=== PATIENT | female | born 1950 | race Hispanic/Latino ===

== ENCOUNTER 2018-08-09 20:39 | Emergency (ER) | payer SELFPAY ==
[2018-08-09] MEDS ORDERED: GASTROGRAFIN SOLUTION 30ML (Q9963) As Ordered (21:58)
[2018-08-09] MEDS: GASTROGRAFIN SOLUTION 30ML PO ×2 (22:00→22:30)
[2018-08-09] MEDS: MORPHINE 4 MG/ML 1ML VIAL/SYRINGE (J2270) IV (22:03)
[2018-08-09] MEDS: ONDANSETRON 4MG/2ML VIAL (J2405) IV ×2 (22:03→22:45)
[2018-08-09] MEDS: NS 1,000 ML IV (22:03)
[2018-08-09 22:09] LABS: BASO % 0.3 % (0.0-1.0); EOS # 0.1 10^3/uL (0.0-0.50); EOS % 1.5 % (0.0-3.0); HEMATOCRIT 28.9 % (36.0-47.0); HEMOGLOBIN 9.1 g/dl (12.0-15.5); IMMATURE GRANULOCYTE % 0.3 % (0-3.0); LYMPH # 1.5 10^3/uL (1.5-4.5); LYMPH % 20.5 % (24.0-44.0); MEAN CORPUSCULAR HEMOGLOBIN 23.9 pg (27.0-33.0); MEAN CORPUSCULAR HGB CONC 31.5 g/dl (32.0-36.5); MEAN CORPUSCULAR VOLUME 76.1 fl (80.0-96.0); MONO # 0.6 10^3/uL (0.0-0.8); NEUTROPHILS % 69.4 % (36.0-66.0); PLATELET COUNT, AUTOMATED 315 10^3/uL (150-450); RED CELL DISTRIBUTION WIDTH 19.4 % (11.5-14.5); WHITE BLOOD COUNT 7.2 10^3/uL (4.0-10.0)
[2018-08-09 22:36] LABS: ALBUMIN 3.6 GM/DL (3.2-5.2); ALBUMIN/GLOBULIN RATIO 1.13 (1.00-1.93); ALKALINE PHOSPHATASE 113 U/L (45-117); ALT/SGPT 14 U/L (12-78); ANION GAP 11 MEQ/L (8-16); AST/SGOT 9 U/L (7-37); BILIRUBIN,DIRECT < 0.1 MG/DL (0.0-0.2); BILIRUBIN,TOTAL 0.3 MG/DL (0.2-1.0); BLOOD UREA NITROGEN 9 MG/DL (7-18); CALCIUM LEVEL 8.8 MG/DL (8.8-10.2); CARBON DIOXIDE LEVEL 22 MEQ/L (21-32); CHLORIDE LEVEL 99 MEQ/L (98-107); CPK CREATINE PHOSPHOKINASE 40 U/L (26-192); CREATININE FOR GFR 0.39 MG/DL (0.55-1.30); GLOMERULAR FILTRATION RATE > 60.0 (>39); GLUCOSE, FASTING 98 MG/DL (70-100); LIPASE 509 U/L (73-393); POTASSIUM SERUM 4.2 MEQ/L (3.5-5.1); SODIUM LEVEL 132 MEQ/L (136-145); TOTAL PROTEIN 6.8 GM/DL (6.4-8.2); TROPONIN I < 0.02 NG/ML (< 0.10)
[2018-08-09 22:37] LABS: CK-MB VALUE MASS < 1.0 NG/ML (<3.6)
[2018-08-09] MEDS ORDERED: ISOVUE-370 76% 100ML VIAL (Q9967) As Ordered (22:43)
[2018-08-10] MEDS: MORPHINE 4 MG/ML 1ML VIAL/SYRINGE (J2270) IV (00:02)
[2018-08-10 00:06] LABS: KETONE, URINE AUTO RFX TRACE mg/dL (NEGATIVE); LEUKOCYTE ESTERASE UR AUTO RFX NEGATIVE (NEGATIVE); NITRITE, URINE AUTO RFX NEGATIVE (NEGATIVE); RBC, URINE AUTO RFX 0 /HPF (0-3); SPECIFIC GRAVITY UR AUTO RFX 1.005 (1.002-1.035); SQUAM EPITHELIAL CELL UR AURFX 0 /HPF (0-6); WBC, URINE AUTO RFX 0 /HPF (0-3)
[2018-08-10] MEDS: PROMETHAZINE INJ 25 MG/ML VIAL (J2550) IV (01:29)
[2018-08-10] MEDS: GI COCKTAIL 50ML BTL(HYOSCYAMINE/MAALOX/LIDOCAINE VISCOUS)(1:3:1) PO (01:38)
[2018-08-10] MEDS: PANTOPRAZOLE 40MG INJ (PROTONIX) (C9113) IV (01:38)
[2018-08-10] MEDS: LOSARTAN 50 MG TAB PO (01:40)
== END 2018-08-10 03:46 | disposition home or self-care (01) ==
LOC: M ED 08-10 03:46
DX: K29.70 Gastritis, unspecified, without bleeding (principal); R94.31 Abnormal electrocardiogram [ECG] [EKG]; N20.0 Calculus of kidney; K57.30 Diverticulosis of large intestine without perforation or abscess without bleeding; K80.20 Calculus of gallbladder without cholecystitis without obstruction; E11.9 Type 2 diabetes mellitus without complications; I10 Essential (primary) hypertension; Z79.84 Long term (current) use of oral hypoglycemic drugs; Z79.899 Other long term (current) drug therapy
CPT/HCPCS: C9113

== ENCOUNTER 2018-08-18 21:12 | Inpatient (IN) | payer SELFPAY ==
[2018-08-18 22:22] LABS: BASO % 0.2 % (0.0-1.0); EOS # 0.1 10^3/uL (0.0-0.50); EOS % 0.7 % (0.0-3.0); HEMATOCRIT 27.7 % (36.0-47.0); HEMOGLOBIN 8.7 g/dl (12.0-15.5); IMMATURE GRANULOCYTE % 0.4 % (0-3.0); LYMPH # 0.9 10^3/uL (1.5-4.5); LYMPH % 8.7 % (24.0-44.0); MEAN CORPUSCULAR HEMOGLOBIN 23.5 pg (27.0-33.0); MEAN CORPUSCULAR HGB CONC 31.4 g/dl (32.0-36.5); MEAN CORPUSCULAR VOLUME 74.7 fl (80.0-96.0); MONO # 1.2 10^3/uL (0.0-0.8); MONO % 10.7 % (0.0-5.0); NEUTROPHILS # 8.5 10^3/uL (1.8-7.7); NEUTROPHILS % 79.3 % (36.0-66.0); PLATELET COUNT, AUTOMATED 379 10^3/uL (150-450); RED BLOOD COUNT 3.71 10^6/uL (4.00-5.40); RED CELL DISTRIBUTION WIDTH 18.7 % (11.5-14.5); WHITE BLOOD COUNT 10.7 10^3/uL (4.0-10.0)
[2018-08-18 22:50] LABS: ALBUMIN 3.1 GM/DL (3.2-5.2); ALBUMIN/GLOBULIN RATIO 0.79 (1.00-1.93); ALKALINE PHOSPHATASE 104 U/L (45-117); ALT/SGPT 11 U/L (12-78); ANION GAP 8 MEQ/L (8-16); AST/SGOT 18 U/L (7-37); BILIRUBIN,DIRECT < 0.1 MG/DL (0.0-0.2); BILIRUBIN,TOTAL 0.4 MG/DL (0.2-1.0); BLOOD UREA NITROGEN 8 MG/DL (7-18); CALCIUM LEVEL 8.4 MG/DL (8.8-10.2); CARBON DIOXIDE LEVEL 26 MEQ/L (21-32); CHLORIDE LEVEL 96 MEQ/L (98-107); GLOMERULAR FILTRATION RATE > 60.0 (>39); GLUCOSE, FASTING 117 MG/DL (70-100); LIPASE 230 U/L (73-393); SODIUM LEVEL 130 MEQ/L (136-145)
[2018-08-18] MEDS: MORPHINE 4 MG/ML 1ML VIAL/SYRINGE (J2270) IV (23:23)
[2018-08-18] MEDS: NS 1,000 ML IV (23:24)
[2018-08-18] MEDS: GASTROGRAFIN SOLUTION 30ML PO ×2 (23:30→23:55)
[2018-08-18 23:49] LABS: APPEARANCE, URINE CLEAR (CLEAR); BACTERIA, URINE AUTO NEGATIVE (NEGATIVE); BILIRUBIN, URINE AUTO NEGATIVE (NEGATIVE); BLOOD, URINE BLOOD NEGATIVE (NEGATIVE); COLOR, URINE COLORLESS (YELLOW); GLUCOSE, URINE (UA) AUTO NEGATIVE (NEGATIVE); KETONE, URINE AUTO NEGATIVE (NEGATIVE); LEUKOCYTE ESTERASE, URINE AUTO TRACE (NEGATIVE); NITRITE, URINE AUTO NEGATIVE (NEGATIVE); PROTEIN, URINE AUTO NEGATIVE (NEGATIVE); RBC, URINE AUTO 0 /HPF (0-3); SPECIFIC GRAVITY URINE AUTO 1.002 (1.002-1.035); SQUAMOUS EPITHELIAL CELL UR AU 1 /HPF (0-6); UROBILINOGEN, URINE AUTO 0.2 mg/dL (0.0-2.0); WBC, URINE AUTO 2 /HPF (0-3)
[2018-08-19] MEDS ORDERED: ISOVUE-370 76% 100ML VIAL (Q9967) As Ordered (00:03)
[2018-08-19] MEDS ORDERED: ONDANSETRON 4MG/2ML VIAL (J2405) As Ordered (00:30)
[2018-08-19] MEDS: ONDANSETRON 4MG/2ML VIAL (J2405) IV ×2 (00:39→05:47)
[2018-08-19] MEDS: MORPHINE 4 MG/ML 1ML VIAL/SYRINGE (J2270) IV (02:26)
[2018-08-19] MEDS ORDERED: DEXTROSE 50% 50 ML SYRINGE IV ×2 (02:30→11:30)
[2018-08-19] MEDS ORDERED: GLUCOSE 4 GM CHEW TABLET PO ×2 (02:30→11:30)
[2018-08-19] MEDS ORDERED: GLUCAGON FOR INJ 1 MG VIAL (J1610) SC ×2 (02:30→11:30)
[2018-08-19] MEDS: NS 1,000 ML IV (03:51)
[2018-08-19 05:24] LABS: BEDSIDE GLUCOSE 149 MG/DL (83-110)
[2018-08-19 08:24] LABS: BEDSIDE GLUCOSE 162 MG/DL (83-110)
[2018-08-19] MEDS: PANTOPRAZOLE 40MG TAB (PROTONIX) PO (08:43)
[2018-08-19] MEDS: ENOXAPARIN 40 MG/0.4 ML SYRINGE (J1650) SC (08:43)
[2018-08-19] MEDS: HumaLOG INSULIN (NovoLOG) PER UNIT SC ×4 (08:44→20:18)
[2018-08-19] MEDS: LOSARTAN 50 MG TAB PO (08:44)
[2018-08-19] MEDS ORDERED: MOM 30ML SUSPENSION UDC PO (10:00)
[2018-08-19 10:28] LABS: CARCINOEMBRYONIC ANTIGEN 0.9 NG/ML (<2.5)
[2018-08-19 10:32] LABS: BASO % 0.1 % (0.0-1.0); EOS % 0.1 % (0.0-3.0); HEMATOCRIT 26.9 % (36.0-47.0); HEMOGLOBIN 8.5 g/dl (12.0-15.5); IMMATURE GRANULOCYTE % 0.3 % (0-3.0); LYMPH # 0.6 10^3/uL (1.5-4.5); LYMPH % 8.7 % (24.0-44.0); MEAN CORPUSCULAR HEMOGLOBIN 23.7 pg (27.0-33.0); MEAN CORPUSCULAR HGB CONC 31.6 g/dl (32.0-36.5); MEAN CORPUSCULAR VOLUME 74.9 fl (80.0-96.0); MONO # 0.7 10^3/uL (0.0-0.8); MONO % 9.8 % (0.0-5.0); NEUTROPHILS # 5.7 10^3/uL (1.8-7.7); PLATELET COUNT, AUTOMATED 355 10^3/uL (150-450); RED BLOOD COUNT 3.59 10^6/uL (4.00-5.40); RED CELL DISTRIBUTION WIDTH 18.6 % (11.5-14.5)
[2018-08-19 11:10] LABS: ANION GAP 8 MEQ/L (8-16); BLOOD UREA NITROGEN 6 MG/DL (7-18); CALCIUM LEVEL 8.2 MG/DL (8.8-10.2); CARBON DIOXIDE LEVEL 25 MEQ/L (21-32); CHLORIDE LEVEL 95 MEQ/L (98-107); CREATININE FOR GFR 0.32 MG/DL (0.55-1.30); GLOMERULAR FILTRATION RATE > 60.0 (>39); GLUCOSE, FASTING 140 MG/DL (70-100); POTASSIUM SERUM 3.8 MEQ/L (3.5-5.1); SODIUM LEVEL 128 MEQ/L (136-145)
[2018-08-19 11:57] LABS: BEDSIDE GLUCOSE 102 MG/DL (83-110)
[2018-08-19 16:45] LABS: BEDSIDE GLUCOSE 125 MG/DL (83-110)
[2018-08-19] MEDS: GOLYTELY SOLN 4000 ML BTL PO (17:36)
[2018-08-19 19:52] LABS: BEDSIDE GLUCOSE 124 MG/DL (83-110)
[2018-08-19] MEDS: DOCUSATE SODIUM 100 MG CAP PO (20:23)
[2018-08-20] MEDS: BISACODYL 5 MG TAB PO (02:43)
[2018-08-20 06:20] LABS: HEMATOCRIT 25.9 % (36.0-47.0); HEMOGLOBIN 8.2 g/dl (12.0-15.5); MEAN CORPUSCULAR HEMOGLOBIN 23.1 pg (27.0-33.0); MEAN CORPUSCULAR HGB CONC 31.7 g/dl (32.0-36.5); PLATELET COUNT, AUTOMATED 405 10^3/uL (150-450); RED BLOOD COUNT 3.55 10^6/uL (4.00-5.40); RED CELL DISTRIBUTION WIDTH 18.6 % (11.5-14.5); WHITE BLOOD COUNT 5.2 10^3/uL (4.0-10.0)
[2018-08-20 06:38] LABS: ANION GAP 8 MEQ/L (8-16); BLOOD UREA NITROGEN 4 MG/DL (7-18); CALCIUM LEVEL 8.4 MG/DL (8.8-10.2); CARBON DIOXIDE LEVEL 25 MEQ/L (21-32); CHLORIDE LEVEL 105 MEQ/L (98-107); CREATININE FOR GFR 0.35 MG/DL (0.55-1.30); GLOMERULAR FILTRATION RATE > 60.0 (>39); GLUCOSE, FASTING 103 MG/DL (70-100); POTASSIUM SERUM 3.7 MEQ/L (3.5-5.1); SODIUM LEVEL 138 MEQ/L (136-145)
[2018-08-20] MEDS: HumaLOG INSULIN (NovoLOG) PER UNIT SC ×4 (07:30→20:35)
[2018-08-20] MEDS: DOCUSATE SODIUM 100 MG CAP PO ×2 (07:52→20:42)
[2018-08-20] MEDS: PANTOPRAZOLE 40MG TAB (PROTONIX) PO (09:00)
[2018-08-20] MEDS: LOSARTAN 50 MG TAB PO (09:46)
[2018-08-20] MEDS: PANTOPRAZOLE 40MG INJ (PROTONIX) (C9113) IV (09:58)
[2018-08-20] MEDS: GI COCKTAIL 50ML BTL(HYOSCYAMINE/MAALOX/LIDOCAINE VISCOUS)(1:3:1) PO (10:00)
[2018-08-20] MEDS ORDERED: PROPOFOL 200 MG/20 ML VIAL As Ordered (12:58)
[2018-08-20] MEDS ORDERED: ONDANSETRON 4MG/2ML VIAL (J2405) As Ordered (13:25)
[2018-08-20] MEDS: LR 1,000 ML IV (13:45)
[2018-08-20] MEDS ORDERED: fentaNYL 100 MCG/2 ML INJECTION (J3010) IV (13:45)
[2018-08-20] MEDS ORDERED: ONDANSETRON 4MG/2ML VIAL (J2405) IV (13:45)
[2018-08-20] MEDS: MULTIVITAMINS/MINERALS THERAP 1 TAB PO (14:52)
[2018-08-20] MEDS: amLODIPine 10 MG TAB PO (15:59)
[2018-08-20] MEDS: cloNIDine 0.1 MG TAB PO ×2 (15:59→17:47)
[2018-08-20 16:24] LABS: BEDSIDE GLUCOSE 116 MG/DL (83-110)
[2018-08-20 19:56] LABS: BEDSIDE GLUCOSE 157 MG/DL (83-110)
[2018-08-21 06:34] LABS: ANION GAP 8 MEQ/L (8-16); BLOOD UREA NITROGEN 4 MG/DL (7-18); CALCIUM LEVEL 8.7 MG/DL (8.8-10.2); CARBON DIOXIDE LEVEL 26 MEQ/L (21-32); CHLORIDE LEVEL 102 MEQ/L (98-107); CREATININE FOR GFR 0.41 MG/DL (0.55-1.30); GLOMERULAR FILTRATION RATE > 60.0 (>39); GLUCOSE, FASTING 128 MG/DL (70-100); IRON (FE) 12 UG/DL (50-170); POTASSIUM SERUM 3.6 MEQ/L (3.5-5.1); SODIUM LEVEL 136 MEQ/L (136-145)
[2018-08-21] MEDS: HumaLOG INSULIN (NovoLOG) PER UNIT SC ×4 (07:30→20:58)
[2018-08-21] MEDS: amLODIPine 10 MG TAB PO (10:39)
[2018-08-21] MEDS: PANTOPRAZOLE 40MG TAB (PROTONIX) PO (10:40)
[2018-08-21] MEDS: LOSARTAN 50 MG TAB PO (10:40)
[2018-08-21] MEDS: MULTIVITAMINS/MINERALS THERAP 1 TAB PO (10:40)
[2018-08-21] MEDS: METOPROLOL TART 12.5 MG PER 1/2 TAB PO ×2 (10:42→21:11)
[2018-08-21] MEDS: DOCUSATE SODIUM 100 MG CAP PO ×2 (10:43→21:11)
[2018-08-21] MEDS: D5W/0.45% SODIUM CHLORIDE 1,000 ML IV (11:41)
[2018-08-21 11:50] LABS: BEDSIDE GLUCOSE 138 MG/DL (83-110)
[2018-08-21 16:28] LABS: BEDSIDE GLUCOSE 214 MG/DL (83-110)
[2018-08-21 20:33] LABS: BEDSIDE GLUCOSE 91 MG/DL (83-110)
[2018-08-21] MEDS: MIRALAX *UNIT DOSE* 17GM PACKET PO ×3 (21:03→21:56)
[2018-08-21] MEDS: NEOMYCIN SULFATE 500 MG TAB PO (21:11)
[2018-08-21] MEDS: ALPRAZolam 0.25 MG TAB PO (21:11)
[2018-08-21] MEDS: metroNIDAZOLE (FLAGYL) 500 MG TAB PO (21:11)
[2018-08-22] MEDS: ACETAMINOPHEN TAB 650MG DOSE (2X325MG) PO (02:10)
[2018-08-22] MEDS: cefoTEtan DISODIUM 2 GM in D5W MINI-BAG PLUS 50 ML IV (06:00)
[2018-08-22 06:22] LABS: HEMATOCRIT 27.8 % (36.0-47.0); HEMOGLOBIN 8.7 g/dl (12.0-15.5); MEAN CORPUSCULAR HEMOGLOBIN 23.1 pg (27.0-33.0); MEAN CORPUSCULAR HGB CONC 31.3 g/dl (32.0-36.5); MEAN CORPUSCULAR VOLUME 73.7 fl (80.0-96.0); PLATELET COUNT, AUTOMATED 434 10^3/uL (150-450); RED BLOOD COUNT 3.77 10^6/uL (4.00-5.40); RED CELL DISTRIBUTION WIDTH 18.6 % (11.5-14.5); WHITE BLOOD COUNT 7.1 10^3/uL (4.0-10.0)
[2018-08-22] MEDS: metroNIDAZOLE (FLAGYL) 500 MG TAB PO (06:30)
[2018-08-22] MEDS: NEOMYCIN SULFATE 500 MG TAB PO (06:30)
[2018-08-22 06:42] LABS: ANION GAP 8 MEQ/L (8-16); BLOOD UREA NITROGEN 4 MG/DL (7-18); CALCIUM LEVEL 8.4 MG/DL (8.8-10.2); CARBON DIOXIDE LEVEL 26 MEQ/L (21-32); CHLORIDE LEVEL 104 MEQ/L (98-107); GLOMERULAR FILTRATION RATE > 60.0 (>39); GLUCOSE, FASTING 113 MG/DL (70-100); POTASSIUM SERUM 3.6 MEQ/L (3.5-5.1); SODIUM LEVEL 138 MEQ/L (136-145)
[2018-08-22] MEDS: HumaLOG INSULIN (NovoLOG) PER UNIT SC ×5 (07:30→21:00)
[2018-08-22] MEDS: D5W/0.45% SODIUM CHLORIDE 1,000 ML IV (08:14)
[2018-08-22] MEDS: DOCUSATE SODIUM 100 MG CAP PO ×2 (08:27→21:00)
[2018-08-22] MEDS: MULTIVITAMINS/MINERALS THERAP 1 TAB PO (08:28)
[2018-08-22] MEDS: PANTOPRAZOLE 40MG TAB (PROTONIX) PO (08:28)
[2018-08-22] MEDS: MORPHINE 4 MG/ML 1ML VIAL/SYRINGE (J2270) IV (08:28)
[2018-08-22] MEDS: ONDANSETRON 4MG/2ML VIAL (J2405) IV (08:28)
[2018-08-22] MEDS: METOPROLOL TART 12.5 MG PER 1/2 TAB PO ×2 (08:34→21:00)
[2018-08-22] MEDS: LOSARTAN 50 MG TAB PO (08:34)
[2018-08-22] MEDS: amLODIPine 10 MG TAB PO (08:34)
[2018-08-22] MEDS: cloNIDine 0.1 MG TAB PO ×2 (09:00→21:00)
[2018-08-22 11:31] LABS: BEDSIDE GLUCOSE 156 MG/DL (83-110)
[2018-08-22] MEDS: ALVIMOPAN 12 MG CAPSULE (ENTEREG) PO ×2 (13:58→21:00)
[2018-08-22] MEDS ORDERED: ROCURONIUM BROMIDE 50 MG/5 ML VIAL As Ordered ×2 (14:39→15:45)
[2018-08-22] MEDS ORDERED: fentaNYL 100 MCG/2 ML INJECTION (J3010) As Ordered (14:39)
[2018-08-22] MEDS ORDERED: LIDOCAINE 2% INJ 100 MG/5 ML SDV (FOR ANES.) As Ordered (14:39)
[2018-08-22] MEDS ORDERED: PROPOFOL 200 MG/20 ML VIAL As Ordered (14:39)
[2018-08-22] MEDS ORDERED: SUCCINYLCHOLINE 100 MG/5 ML SYRINGE (J0330) As Ordered (14:43)
[2018-08-22] MEDS ORDERED: dexameTHASONE 4 MG/ML 1ML VIAL (J1100) As Ordered (15:12)
[2018-08-22] MEDS ORDERED: PHENYLephrine HCL 500 MCG/5 ML (100MCG/ML) SYRINGE (J2370) As Ordered (15:23)
[2018-08-22] MEDS ORDERED: HYDROmorphone HCL 2 MG/ML 1ML VIAL (J1170) As Ordered (16:03)
[2018-08-22] MEDS ORDERED: SUGAMMADEX SODIUM 500 MG/5 ML VIAL (BRIDION) As Ordered (18:12)
[2018-08-22] MEDS: BUPIVACAINE HCL 0.25% 30 ML VIAL As Ordered (18:26)
[2018-08-22] MEDS: BUPIVACAINE LIPOSOME/PF 1.3% 20 ML VIAL (13.3MG/ML)(EXPAREL) As Ordered (18:26)
[2018-08-22] MEDS: LR 1,000 ML IV (18:43)
[2018-08-22 18:50] LABS: BEDSIDE GLUCOSE 247 MG/DL (83-110)
[2018-08-22] MEDS ORDERED: HumaLOG INSULIN (NovoLOG) PER UNIT As Ordered (18:52)
[2018-08-22] MEDS ORDERED: PERCOCET 5MG/325MG TAB PO (19:00)
[2018-08-22] MEDS ORDERED: HYDROMORPHONE HCL 0.5 MG/ 0.5 ML SYRINGE (J1170 PER 1) IV (19:00)
[2018-08-22] MEDS ORDERED: ONDANSETRON 4MG/2ML VIAL (J2405) IV (19:00)
[2018-08-22] MEDS ORDERED: fentaNYL 100 MCG/2 ML INJECTION (J3010) IV (19:00)
[2018-08-22] MEDS ORDERED: METOCLOPRAMIDE INJ 10MG/2ML VIAL (J2765) IV (19:00)
[2018-08-22] MEDS ORDERED: PERCOCET 5MG/325MG TAB As Ordered (19:25)
[2018-08-22 21:49] LABS: BEDSIDE GLUCOSE 158 MG/DL (83-110)
[2018-08-22] MEDS: NORCO, ANEXSIA 5/325MG TABLET (HYDROcodone/ACETAMINOPHEN) PO (22:00)
[2018-08-23] MEDS: ONDANSETRON 4MG/2ML VIAL (J2405) IV (02:53)
[2018-08-23] MEDS: MORPHINE 4 MG/ML 1ML VIAL/SYRINGE (J2270) IV ×2 (02:54→07:31)
[2018-08-23 06:12] LABS: BEDSIDE GLUCOSE 134 MG/DL (83-110)
[2018-08-23] MEDS: DOCUSATE SODIUM 100 MG CAP PO (07:34)
[2018-08-23] MEDS: MULTIVITAMINS/MINERALS THERAP 1 TAB PO (07:34)
[2018-08-23] MEDS: ALVIMOPAN 12 MG CAPSULE (ENTEREG) PO ×2 (07:34→20:24)
[2018-08-23] MEDS: PANTOPRAZOLE 40MG TAB (PROTONIX) PO (07:34)
[2018-08-23] MEDS: LOSARTAN 50 MG TAB PO (07:35)
[2018-08-23] MEDS: amLODIPine 10 MG TAB PO (07:35)
[2018-08-23] MEDS: METOPROLOL TART 12.5 MG PER 1/2 TAB PO ×2 (07:35→20:25)
[2018-08-23] MEDS: cloNIDine 0.1 MG TAB PO ×2 (07:36→20:24)
[2018-08-23] MEDS: HumaLOG INSULIN (NovoLOG) PER UNIT SC ×4 (07:37→21:00)
[2018-08-23] MEDS: NORCO, ANEXSIA 5/325MG TABLET (HYDROcodone/ACETAMINOPHEN) PO ×2 (08:45→22:16)
[2018-08-23] MEDS ORDERED: METOCLOPRAMIDE INJ 10MG/2ML VIAL (J2765) IV (08:45)
[2018-08-23] MEDS: METOCLOPRAMIDE INJ 10MG/2ML VIAL (J2765) IV (08:45)
[2018-08-23 12:12] LABS: BEDSIDE GLUCOSE 123 MG/DL (83-110)
[2018-08-23 17:41] LABS: BEDSIDE GLUCOSE 128 MG/DL (83-110)
[2018-08-23 21:45] LABS: BEDSIDE GLUCOSE 117 MG/DL (83-110)
[2018-08-24] MEDS: NORCO, ANEXSIA 5/325MG TABLET (HYDROcodone/ACETAMINOPHEN) PO ×2 (06:30→22:12)
[2018-08-24 06:48] LABS: BASO % 0.2 % (0.0-1.0); EOS # 0.1 10^3/uL (0.0-0.50); HEMATOCRIT 25.1 % (36.0-47.0); HEMOGLOBIN 7.9 g/dl (12.0-15.5); IMMATURE GRANULOCYTE % 0.6 % (0-3.0); LYMPH # 0.9 10^3/uL (1.5-4.5); LYMPH % 9.6 % (24.0-44.0); MEAN CORPUSCULAR HEMOGLOBIN 23.1 pg (27.0-33.0); MEAN CORPUSCULAR HGB CONC 31.5 g/dl (32.0-36.5); MEAN CORPUSCULAR VOLUME 73.4 fl (80.0-96.0); MONO # 0.7 10^3/uL (0.0-0.8); MONO % 7.4 % (0.0-5.0); NEUTROPHILS # 7.3 10^3/uL (1.8-7.7); NEUTROPHILS % 81.2 % (36.0-66.0); PLATELET COUNT, AUTOMATED 345 10^3/uL (150-450); RED BLOOD COUNT 3.42 10^6/uL (4.00-5.40); RED CELL DISTRIBUTION WIDTH 18.9 % (11.5-14.5); WHITE BLOOD COUNT 8.9 10^3/uL (4.0-10.0)
[2018-08-24] MEDS: MORPHINE 4 MG/ML 1ML VIAL/SYRINGE (J2270) IV ×2 (07:00→07:14)
[2018-08-24 07:11] LABS: ANION GAP 10 MEQ/L (8-16); BLOOD UREA NITROGEN 3 MG/DL (7-18); CALCIUM LEVEL 8.3 MG/DL (8.8-10.2); CARBON DIOXIDE LEVEL 24 MEQ/L (21-32); CHLORIDE LEVEL 105 MEQ/L (98-107); CREATININE FOR GFR 0.41 MG/DL (0.55-1.30); GLOMERULAR FILTRATION RATE > 60.0 (>39); GLUCOSE, FASTING 117 MG/DL (70-100); POTASSIUM SERUM 2.8 MEQ/L (3.5-5.1); SODIUM LEVEL 139 MEQ/L (136-145)
[2018-08-24 07:45] LABS: MAGNESIUM LEVEL 1.8 MG/DL (1.8-2.4)
[2018-08-24] MEDS: HumaLOG INSULIN (NovoLOG) PER UNIT SC ×4 (08:27→20:15)
[2018-08-24] MEDS: PANTOPRAZOLE 40MG INJ (PROTONIX) (C9113) IV (08:27)
[2018-08-24] MEDS: cloNIDine 0.1 MG TAB PO ×2 (08:28→20:24)
[2018-08-24] MEDS: LOSARTAN 50 MG TAB PO (08:28)
[2018-08-24] MEDS: POTASSIUM CHLORIDE 10 MEQ SR TABLET PO ×3 (08:28→13:25)
[2018-08-24] MEDS: METOPROLOL TART 12.5 MG PER 1/2 TAB PO ×2 (08:29→20:25)
[2018-08-24] MEDS: ALVIMOPAN 12 MG CAPSULE (ENTEREG) PO ×2 (08:29→20:24)
[2018-08-24] MEDS: MULTIVITAMINS/MINERALS THERAP 1 TAB PO (08:29)
[2018-08-24] MEDS: amLODIPine 10 MG TAB PO (08:29)
[2018-08-24] MEDS: GI COCKTAIL 50ML BTL(HYOSCYAMINE/MAALOX/LIDOCAINE VISCOUS)(1:3:1) PO (10:58)
[2018-08-24] MEDS: KCL 40MEQ IN D5/NS 1000ML 1,000 ML IV (11:15)
[2018-08-24 11:57] LABS: BEDSIDE GLUCOSE 200 MG/DL (83-110)
[2018-08-24 17:23] LABS: BEDSIDE GLUCOSE 188 MG/DL (83-110)
[2018-08-24 20:36] LABS: BEDSIDE GLUCOSE 87 MG/DL (83-110)
[2018-08-24 22:25] LABS: MAGNESIUM LEVEL 1.8 MG/DL (1.8-2.4)
[2018-08-25 07:30] LABS: HEMATOCRIT 28.4 % (36.0-47.0); HEMOGLOBIN 8.7 g/dl (12.0-15.5)
[2018-08-25 07:46] LABS: ANION GAP 7 MEQ/L (8-16); BLOOD UREA NITROGEN 3 MG/DL (7-18); CARBON DIOXIDE LEVEL 25 MEQ/L (21-32); CHLORIDE LEVEL 103 MEQ/L (98-107); CREATININE FOR GFR 0.47 MG/DL (0.55-1.30); GLOMERULAR FILTRATION RATE > 60.0 (>39); GLUCOSE, FASTING 144 MG/DL (70-100); MAGNESIUM LEVEL 1.9 MG/DL (1.8-2.4); POTASSIUM SERUM 4.5 MEQ/L (3.5-5.1); SODIUM LEVEL 135 MEQ/L (136-145)
[2018-08-25] MEDS: FUROSEMIDE 20 MG/2 ML VIAL (J1940) IV (08:00)
[2018-08-25] MEDS: HumaLOG INSULIN (NovoLOG) PER UNIT SC ×4 (08:13→20:38)
[2018-08-25] MEDS: PANTOPRAZOLE 40MG TAB (PROTONIX) PO (08:15)
[2018-08-25] MEDS: LOSARTAN 50 MG TAB PO (08:15)
[2018-08-25] MEDS: cloNIDine 0.1 MG TAB PO ×2 (08:16→20:42)
[2018-08-25] MEDS: ALVIMOPAN 12 MG CAPSULE (ENTEREG) PO ×2 (08:16→20:42)
[2018-08-25] MEDS: MULTIVITAMINS/MINERALS THERAP 1 TAB PO (08:17)
[2018-08-25] MEDS: amLODIPine 10 MG TAB PO (08:17)
[2018-08-25] MEDS: METOPROLOL TART 12.5 MG PER 1/2 TAB PO ×2 (08:17→20:42)
[2018-08-25 11:37] LABS: BEDSIDE GLUCOSE 217 MG/DL (83-110)
[2018-08-25] MEDS ORDERED: SIMETHICONE 80 MG CHEW TAB PO (12:00)
[2018-08-25] MEDS: SIMETHICONE 80 MG CHEW TAB PO ×2 (12:01→20:42)
[2018-08-25 17:48] LABS: BEDSIDE GLUCOSE 209 MG/DL (83-110)
[2018-08-25 18:12] LABS: HEMATOCRIT 27.6 % (36.0-47.0); HEMOGLOBIN 8.5 g/dl (12.0-15.5)
[2018-08-25 20:42] LABS: BEDSIDE GLUCOSE 129 MG/DL (83-110)
[2018-08-25] MEDS: NORCO, ANEXSIA 5/325MG TABLET (HYDROcodone/ACETAMINOPHEN) PO (22:57)
[2018-08-26 00:32] LABS: HEMATOCRIT 25.4 % (36.0-47.0)
[2018-08-26] MEDS: NORCO, ANEXSIA 5/325MG TABLET (HYDROcodone/ACETAMINOPHEN) PO ×4 (02:15→18:59)
[2018-08-26 05:58] LABS: HEMATOCRIT 25.4 % (36.0-47.0); MEAN CORPUSCULAR HEMOGLOBIN 22.9 pg (27.0-33.0); MEAN CORPUSCULAR HGB CONC 31.5 g/dl (32.0-36.5); MEAN CORPUSCULAR VOLUME 72.8 fl (80.0-96.0); PLATELET COUNT, AUTOMATED 354 10^3/uL (150-450); RED BLOOD COUNT 3.49 10^6/uL (4.00-5.40); RED CELL DISTRIBUTION WIDTH 18.9 % (11.5-14.5)
[2018-08-26 06:21] LABS: ANION GAP 10 MEQ/L (8-16); BLOOD UREA NITROGEN 5 MG/DL (7-18); CALCIUM LEVEL 8.6 MG/DL (8.8-10.2); CARBON DIOXIDE LEVEL 23 MEQ/L (21-32); CHLORIDE LEVEL 103 MEQ/L (98-107); CREATININE FOR GFR 0.38 MG/DL (0.55-1.30); GLOMERULAR FILTRATION RATE > 60.0 (>39); GLUCOSE, FASTING 149 MG/DL (70-100); POTASSIUM SERUM 4.1 MEQ/L (3.5-5.1); SODIUM LEVEL 136 MEQ/L (136-145)
[2018-08-26] MEDS: PANTOPRAZOLE 40MG TAB (PROTONIX) PO (08:22)
[2018-08-26] MEDS: HumaLOG INSULIN (NovoLOG) PER UNIT SC ×4 (08:22→20:46)
[2018-08-26] MEDS: MULTIVITAMINS/MINERALS THERAP 1 TAB PO (08:23)
[2018-08-26] MEDS: amLODIPine 10 MG TAB PO (08:23)
[2018-08-26] MEDS: cloNIDine 0.1 MG TAB PO ×3 (08:27→20:45)
[2018-08-26] MEDS: SIMETHICONE 80 MG CHEW TAB PO (08:28)
[2018-08-26] MEDS: METOPROLOL TART 25 MG TABLET PO ×2 (08:34→20:49)
[2018-08-26] MEDS: LOSARTAN 25 MG TAB PO (08:35)
[2018-08-26 11:24] LABS: BEDSIDE GLUCOSE 166 MG/DL (83-110)
[2018-08-26] MEDS: ONDANSETRON 4 MG ORAL DISINTEGRATING TAB (Q0162 PER 1MG) PO ×2 (12:29→16:30)
[2018-08-26] MEDS: MAALOX 30 ML SUSP *UDC PO (14:49)
[2018-08-26 16:42] LABS: BEDSIDE GLUCOSE 162 MG/DL (83-110)
[2018-08-26 20:08] LABS: BEDSIDE GLUCOSE 151 MG/DL (83-110)
[2018-08-26] MEDS: IRON DEXTRAN INJ 25 MG in NS 50 ML IV (20:09)
[2018-08-26] MEDS: diphenhydrAMINE INJ 50MG/ML VIAL (J1200) IV (20:26)
[2018-08-26] MEDS: NS 500 ML IV (20:50)
[2018-08-26] MEDS ORDERED: IRON DEXTRAN INJ 75 MG in NS 100 ML IV (21:00)
[2018-08-27 06:34] LABS: ANION GAP 8 MEQ/L (8-16); BLOOD UREA NITROGEN 8 MG/DL (7-18); CALCIUM LEVEL 8.9 MG/DL (8.8-10.2); CARBON DIOXIDE LEVEL 27 MEQ/L (21-32); CHLORIDE LEVEL 103 MEQ/L (98-107); CREATININE FOR GFR 0.44 MG/DL (0.55-1.30); GLOMERULAR FILTRATION RATE > 60.0 (>39); GLUCOSE, FASTING 128 MG/DL (70-100); POTASSIUM SERUM 4.4 MEQ/L (3.5-5.1); SODIUM LEVEL 138 MEQ/L (136-145)
[2018-08-27] MEDS: cloNIDine 0.1 MG TAB PO (08:30)
[2018-08-27] MEDS: HumaLOG INSULIN (NovoLOG) PER UNIT SC ×2 (08:30→12:52)
[2018-08-27] MEDS: amLODIPine 10 MG TAB PO (08:31)
[2018-08-27] MEDS: PANTOPRAZOLE 40MG TAB (PROTONIX) PO (08:31)
[2018-08-27] MEDS: MULTIVITAMINS/MINERALS THERAP 1 TAB PO (08:31)
[2018-08-27] MEDS: METOPROLOL TART 25 MG TABLET PO (08:32)
[2018-08-27] MEDS: LOSARTAN 25 MG TAB PO (08:32)
[2018-08-27] MEDS: NORCO, ANEXSIA 5/325MG TABLET (HYDROcodone/ACETAMINOPHEN) PO (10:13)
[2018-08-27 11:36] LABS: BEDSIDE GLUCOSE 178 MG/DL (83-110)
== END 2018-08-27 13:54 | disposition home or self-care (01) | DRG 221 ==
LOC: M ED INP 08-19 02:02 → M ED 21:12 → M MSPAV 08-19 03:26
PROC: 0DBL8ZX Excision of Transverse Colon, Via Natural or Artificial Opening Endoscopic, Diagnostic (ICD-10-PCS; 2018-08-20 12:15)
PROC: 0DBL4ZZ Excision of Transverse Colon, Percutaneous Endoscopic Approach (ICD-10-PCS; principal; 2018-08-20 12:48)
PROC: 30233N1 Transfusion of Nonautologous Red Blood Cells into Peripheral Vein, Percutaneous Approach (ICD-10-PCS; 2018-08-20 12:48)
DX: C18.4 Malignant neoplasm of transverse colon (principal); E11.9 Type 2 diabetes mellitus without complications; E87.1 Hypo-osmolality and hyponatremia; D50.9 Iron deficiency anemia, unspecified; I10 Essential (primary) hypertension; D62 Acute posthemorrhagic anemia; K21.9 Gastro-esophageal reflux disease without esophagitis; K59.00 Constipation, unspecified; R91.1 Solitary pulmonary nodule; E83.42 Hypomagnesemia; E87.6 Hypokalemia; K57.30 Diverticulosis of large intestine without perforation or abscess without bleeding; K80.20 Calculus of gallbladder without cholecystitis without obstruction; Z79.84 Long term (current) use of oral hypoglycemic drugs; Z79.899 Other long term (current) drug therapy